=== PATIENT | female | born 1955 | race Caucasian/White ===

== ENCOUNTER 2016-07-08 12:20 | Emergency (ER) | payer MEDICARE, MEDICAID ==
--- NOTE | 2016-07-08 12:35 | Emergency Department Record ---
History of Present Illness - General Chief Complaint: Back Pain/Injury Stated Complaint: BACK PAIN Time Seen by Provider: 07/08/16 12:34 Source: Patient Mode of Arrival: Ambulatory Limitations: No limitations - History of Present Illness Initial Comments: The patient is here due to a 5 day hx of R flank and back pain. The pain is sharp and stabbing and waxes and wanes. The pain seems to be worse at night but is not worse with bending or twisting. She denies any abdominal pain, fever, chills, or dysuria. The patient denies that the pain radiates to the legs and has had no spinal pain or leg pain or weakness. MD Complaint: Back pain Onset/Timin -: Days(s) Similar Symptoms Previously: No Place: Home Radiation: None Severity scale (1-10): 7 Quality: Aching, Sharp Consistency: Constant Improves With: None Worsens With: None Context: Unknown Associated Symptoms: Denies other symptoms Treatments Prior to Arrival: NSAIDS - Related Data Home Medications Medication Instructions Recorded Confirmed Last Taken Aspirin [Aspirin EC] 325 mg PO DAILY 09/20/14 07/08/16 09/26/15 Vitamin B Complex [Stress B] 1 each PO .EVERY OTHER DAY 01/06/15 07/08/16 Previous Rx's Medication Instructions Recorded Cyclobenzaprine HCl [Flexeril] 10 mg PO TID PRN #20 tablet 07/08/16 Allergies Allergy/AdvReac Type Severity Reaction Status Date / Time codeine Allergy Mild VOMITING Unverified 01/24/16 08:58 meperidine HCl [From Demerol] Allergy Mild VOMITING Unverified 01/24/16 08:58 naproxen Allergy VOMITING Verified 07/08/16 12:31 meloxicam AdvReac Mild NAUSEA AND Unverified 01/24/16 08:58 VOMITING Travel Screening - Travel/Exposure Within Last 30 Days Have you traveled within the last 30 days?: No Review of Systems Constitutional: Denies: Chills, Fever Eyes: Denies: Eye discharge ENT: Denies: Congestion Respiratory: Denies: Cough, Dyspnea Past Medical History - SOCIAL HISTORY Smoking Status: Former smoker Alcohol Use: None Drug Use: None - RESPIRATORY Hx Respiratory Disorders: Yes Hx COPD: Yes (emphysema) Hx Sleep Apnea: Yes Hx of CPAP: Yes - CARDIOVASCULAR Hx Cardio Disorders: Yes Hx CHF: Yes Hx Hypertension: Yes - NEURO Hx Neuro Disorders: Yes Hx Headaches: Yes - GI Hx GI Disorders: No - Hx Genitourinary Disorders: No - ENDOCRINE Hx Endocrine Disorders: Yes Hx Diabetes: Yes (pre) - MUSCULOSKELETAL Hx Musculoskeletal Disorders: Yes Hx Arthritis: Yes Hx Musculoskeletal Disease: Yes (spinal stenosis) - PSYCH Hx Psych Problems: No - HEMATOLOGY/ONCOLOGY Hx Hematology/Oncology Disorders: No Family Medical History Any Significant Family History?: Yes Hx Diabetes: Mother, Brother/Sister Physical Exam - General General Appearance: Alert, Oriented x3, Cooperative, No acute distress - Head Head exam: Atraumatic, Normocephalic, Normal inspection - Eye Eye exam: Normal appearance, PERRL - Neck Neck exam: Normal inspection, Full ROM. negative: Tenderness - Respiratory Respiratory exam: Normal lung sounds bilaterally. negative: Respiratory distress - Cardiovascular Cardiovascular Exam: Regular rate, Normal rhythm, Normal heart sounds - GI/Abdominal GI/Abdominal exam: Soft, Normal bowel sounds. negative: Tenderness - Extremities Extremities exam: Normal inspection, Full ROM, Normal capillary refill. negative: Tenderness - Back Back exam: Reports: Normal inspection, Paraspinal tenderness (The pain is very reproducible to palpation over the R flank and upper lumbar paraspinal area.). Denies: Rash noted, Vertebral tenderness Course Vital Signs 07/08/16 12:27 Temperature 97.4 F L Pulse Rate 72 Respiratory 20 Rate Blood Pressure 137/96 Pulse Ox 96 - Reevaluation(s) Reevaluation #1: The patient is resting comfortably. She denies any pain or discomfort at this time. I did explain to her the test results are WNL. She is to F/U with her PCP later this week and return to the ER if worse. 07/08/16 13:58 Medical Decision Making - Data Complexity MDM Data: Labs Ordered and/or Reviewed, X-Ray Ordered and/or Reviewed (CT: Neg) - Lab Data Result diagrams: 07/08/16 12:50 07/08/16 12:50 Disposition Disposition: Discharge Clinical Impression: Acute Flank Pain Disposition: Home, Self-Care Condition: (1) Good Instructions: Low Back Strain (ED) Additional Instructions: Please take your home pain medicines and use Flexeril if needed. Please see your PCP later this week for recheck. Return to the ER if worse. Prescriptions: Cyclobenzaprine HCl [Flexeril] 10 mg PO TID PRN #20 tablet PRN Reason: Pain Forms: Patient Portal Access Time of Disposition: 14:00
[2016-07-08 13:08] LABS: BASO % 0.4 % (0-6); EOS % 0.6 % (0-6); GRAN % 78.9 % (47-80); HEMATOCRIT 45.3 % (35.0-47.0); HEMOGLOBIN 15.3 gm/dl (11.6-16.0); LYMPH % 12.6 % (16-45); MEAN CELL VOLUME 88.8 fl (81-97); MEAN CORPUSCULAR HGB CONC 33.8 g/dl (32-36); MONO % 7.5 % (0-9); PLATELET COUNT 306 K/uL (130-400); RED CELL DISTRIBUTION WIDTH 14.7 % (11.5-14.5)
[2016-07-08 13:11] LABS: URINE APPEARANCE CLEAR; URINE BILIRUBIN SMALL (NEGATIVE); URINE BLOOD NEGATIVE (NEGATIVE); URINE COLOR ORANGE; URINE GLUCOSE (UA) NEGATIVE (NEGATIVE); URINE KETONE NEGATIVE (NEGATIVE); URINE LEUKOCYTE ESTERASE NEGATIVE (NEGATIVE); URINE NITRITE NEGATIVE (NEGATIVE)
[2016-07-08 13:20] LABS: ALBUMIN 4.2 gm/dL (3.5-5.0); ALKALINE PHOSPHATASE 85 U/L (38-126); ALT/SGPT 29 U/L (9-52); ANION GAP 13.3 (7-16); AST/SGOT 30 U/L (14-36); BILIRUBIN,TOTAL 0.68 mg/dL (0.2-1.3); BLOOD UREA NITROGEN 17 mg/dL (7-17); CARBON DIOXIDE 21.7 mmol/L (22-30); CREATININE 0.6 mg/dL (0.52-1.04); EST GLOMERULAR FILTRATION RATE > 60 ml/min; GLUCOSE,RANDOM 106 mg/dL (70-110); TOTAL PROTEIN 7.8 gm/dL (6.3-8.2)
[2016-07-08 13:27] LABS: URINE BACTERIA FEW; URINE MUCUS LIGHT; URINE RBC 0 - 2 (NONE SEEN); URINE WBC 0 - 2 (0-2/hpf)
[2016-07-08] MEDS ORDERED: KETOROLAC 30 MG/ML VIAL IM ONE (13:34)
== END 2016-07-08 14:38 | disposition home or self-care (01) ==
LOC: ER 12:20
DX: M54.5 Low back pain (principal); I50.9 Heart failure, unspecified; I10 Essential (primary) hypertension; Z87.891 Personal history of nicotine dependence
CPT/HCPCS: 99283; 96372; 99284; 85025; 80076; 80048; 81001; 74176; J1885

== ENCOUNTER 2018-10-03 16:11 | Emergency (ER) | payer MEDICARE, MEDICAID ==
[2018-10-03] MEDS ORDERED: 0.9 % SODIUM CHLORIDE 1,000 ML BAG IV ONE (16:47)
[2018-10-03 17:07] LABS: URINE APPEARANCE CLEAR; URINE BILIRUBIN NEGATIVE (NEGATIVE); URINE BLOOD NEGATIVE (NEGATIVE); URINE COLOR YELLOW; URINE GLUCOSE (UA) NEGATIVE (NEGATIVE); URINE KETONE NEGATIVE (NEGATIVE); URINE LEUKOCYTE ESTERASE NEGATIVE (NEGATIVE); URINE NITRITE NEGATIVE (NEGATIVE); URINE PROTEIN NEGATIVE (NEGATIVE); URINE UROBILINOGEN 0.2 E.U./dL (0.20 - 1.00)
[2018-10-03 17:07] LABS: ABSOLUTE NEUTROPHIL COUNT 9.59; BASO % 0.7 % (0-6); EOS % 0.7 % (0-6); GRAN % 77.9 % (47-80); HEMATOCRIT 46.4 % (35.0-47.0); HEMOGLOBIN 15.4 gm/dl (11.6-16.0); LYMPH % 14.2 % (16-45); MEAN CELL VOLUME 86.9 fl (81-97); MEAN CORPUSCULAR HEMOGLOBIN 28.8 pg (27-33); MEAN CORPUSCULAR HGB CONC 33.2 g/dl (32-36); MEAN PLATELET VOLUME 9.8 fl (7.4-10.4); MONO % 6.5 % (0-9); PLATELET COUNT 299 K/uL (130-400); RED BLOOD COUNT 5.34 M/uL (3.80-5.40); RED CELL DISTRIBUTION WIDTH 14.3 % (11.5-14.5); WHITE BLOOD COUNT W/O DIFF 12.3 K/uL (4.2-12.2)
[2018-10-03 17:21] LABS: BLOOD UREA NITROGEN 16 mg/dL (8-23); CREATININE 0.7 mg/dL (0.5-0.9); EST GLOMERULAR FILTRATION RATE > 60 mL/min; TOTAL PROTEIN 7.8 g/dL (6.6-8.7)
[2018-10-03 17:22] LABS: LIPASE 40 U/L (13-60)
[2018-10-03 17:23] LABS: GLUCOSE,RANDOM 124 mg/dL (74-109)
[2018-10-03 17:26] LABS: ALB/GLOB RATIO 1.2 (1.1-1.8); ALBUMIN 4.3 g/dL (4.0-5.0); ALKALINE PHOSPHATASE 105 U/L (35-104); ALT/SGPT 20 U/L (<33); AST/SGOT 21 U/L (10.0-35.0)
--- NOTE | 2018-10-03 18:55 | Emergency Department Record ---
History of Present Illness - General Chief Complaint: Abdominal Pain Stated Complaint: ABD PAIN Time Seen by Provider: 10/03/18 16:26 Source: Patient Mode of Arrival: Ambulatory Limitations: No limitations - History of Present Illness Initial Comments: pt has been having pain in her upper abdomen for 3 weeks. she had some nausea. she had a colonoscopy a year and a half ago MD Complaint: Abdominal pain Onset/Timin -: Week(s) Location: Epigastric Radiation: Bilateral flank Migration to: Bilateral flank Severity: Moderate Severity scale (1-10): 6 Consistency: Intermittent Associated Symptoms: Constipation - Related Data Patient : No Home Medications Medication Instructions Recorded Confirmed Last Taken Aspirin Chewable 81 mg PO DAILY 10/03/18 10/03/18 Unknown Allergies Allergy/AdvReac Type Severity Reaction Status Date / Time codeine Allergy Mild VOMITING Unverified 10/03/18 17:16 meperidine HCl [From Demerol] Allergy Mild VOMITING Unverified 10/03/18 17:16 naproxen Allergy VOMITING Unverified 10/03/18 17:16 meloxicam AdvReac Mild NAUSEA AND Unverified 10/03/18 17:16 VOMITING Travel Screening - Travel/Exposure Within Last 30 Days Have you traveled within the last 30 days?: No - Travel/Exposure Within Last Year Have you traveled outside the [place] in the last year?: No - Additonal Travel Details Have you been exposed to anyone with a communicable illness?: No - Travel Symptoms Symptom Screening: Stomach Pain Review of Systems Reviewed: No additional complaints except as noted below Constitutional: Reports: As per HPI. Denies: Chills, Fever, Malaise, Night sweats, Weakness, Weight change Eyes: Reports: As per HPI. Denies: Eye discharge, Eye pain, Photophobia, Vision change ENT: Reports: As per HPI. Denies: Congestion, Dental pain, Ear pain, Epistaxis, Hearing loss, Throat pain Respiratory: Reports: As per HPI. Denies: Cough, Dyspnea, Hemoptysis, Stridor, Wheezes Cardiovascular: Reports: As per HPI. Denies: Arrhythmia, Chest pain, Dyspnea on exertion, Edema, Murmurs, Orthopnea, Palpitations, Paroxysmal nocturnal dyspnea, Rheumatic Fever, Syncope Endocrine: Reports: As per HPI. Denies: Fatigue, Heat or cold intolerance, Polydipsia, Polyuria Gastrointestinal: Reports: As per HPI. Denies: Abdominal pain, Constipation, Diarrhea, Hematemesis, Hematochezia, Melena, Nausea, Vomiting Genitourinary: Reports: As per HPI. Denies: Abnormal menses, Discharge, Dyspareunia, Dysuria, Frequency, Hematuria, Incontinence, Retention, Urgency Musculoskeletal: Reports: As per HPI. Denies: Arthralgia, Back pain, Gout, Joint swelling, Myalgia, Neck pain Skin: Reports: As per HPI. Denies: Bruising, Change in color, Change in hair/nails, Lesions, Pruritus, Rash Neurological: Reports: As per HPI. Denies: Abnormal gait, Confusion, Headache, Numbness, Paresthesias, Seizure, Tingling, Tremors, Vertigo, Weakness Psychiatric: Reports: As per HPI. Denies: Anxiety, Auditory hallucinations, Depression, Homicidal thoughts, Suicidal thoughts, Visual hallucinations Hematological/Lymphatic: Reports: As per HPI. Denies: Anemia, Blood Clots, Easy bleeding, Easy bruising, Swollen glands Past Medical History - SOCIAL HISTORY Smoking Status: Current every day smoker Alcohol Use: Occasional Drug Use: None - RESPIRATORY Hx Respiratory Disorders: Yes Hx COPD: Yes (emphysema) Hx Sleep Apnea: Yes Hx of CPAP: Yes - CARDIOVASCULAR Hx Cardio Disorders: Yes Hx CHF: Yes (with childbirth) Hx Hypertension: Yes - NEURO Hx Neuro Disorders: Yes Hx Headaches: Yes - GI Hx GI Disorders: No Hx of Polyps: Yes - Hx Genitourinary Disorders: No - ENDOCRINE Hx Endocrine Disorders: Yes Hx Diabetes: Yes (pre) - MUSCULOSKELETAL Hx Musculoskeletal Disorders: Yes Hx Arthritis: Yes Hx Musculoskeletal Disease: Yes (spinal stenosis) - PSYCH Hx Psych Problems: No - HEMATOLOGY/ONCOLOGY Hx Hematology/Oncology Disorders: No Family Medical History Any Significant Family History?: No Hx Diabetes: Mother, Brother/Sister Physical Exam - General General Appearance: Alert, Oriented x3, Cooperative, Mild distress - Head Head exam: Normal inspection - Eye Eye exam: Normal appearance, PERRL, EOMI Pupils: Normal accommodation - ENT ENT exam: Normal exam, Mucous membranes moist, Normal external ear exam, Normal orophraynx Ear exam: Normal external inspection. negative: External canal tenderness Nasal Exam: Normal inspection. negative: Discharge, Sinus tenderness Mouth exam: Normal external inspection, Tongue normal Teeth exam: Normal inspection. negative: Dental caries Throat exam: Normal inspection. negative: Tonsillar erythema, Tonsillar exudate - Neck Neck exam: Normal inspection, Full ROM. negative: Tenderness - Respiratory Respiratory exam: Normal lung sounds bilaterally. negative: Respiratory distress - Cardiovascular Cardiovascular Exam: Regular rate, Normal rhythm, Normal heart sounds - GI/Abdominal GI/Abdominal exam: Soft, Normal bowel sounds. negative: Tenderness - Rectal Rectal exam: Deferred - exam: Deferred - Extremities Extremities exam: Normal inspection, Full ROM, Normal capillary refill. negative: Tenderness - Back Back exam: Reports: Normal inspection, Full ROM. Denies: Muscle spasm, Rash noted, Tenderness - Neurological Neurological exam: Alert, CN II-XII intact, Normal gait, Oriented X3 - Psychiatric Psychiatric exam: Normal affect, Normal mood - Skin Skin exam: Dry, Intact, Normal color, Warm Course Vital Signs 10/03/18 10/03/18 16:23 18:25 Temperature 98.7 F Pulse Rate 97 H Pulse Rate [ 76 Pulse Ox Probe] Respiratory 18 18 Rate Blood Pressure 149/80 Blood Pressure 145/80 [Right Arm] Pulse Ox 95 97 Medical Decision Making - Lab Data Result diagrams: 10/03/18 16:55 10/03/18 16:55 Lab Results 10/03/18 10/03/18 10/03/18 Range/Units 16:55 16:55 17:00 WBC 12.3 H (4.2-12.2) K/uL RBC 5.34 (3.80-5.40) M/uL Hgb 15.4 (11.6-16.0) gm/dl Hct 46.4 (35.0-47.0) % MCV 86.9 (81-97) fl MCH 28.8 (27-33) pg MCHC 33.2 (32-36) g/dl RDW 14.3 (11.5-14.5) % Plt Count 299 (130-400) K/uL MPV 9.8 (7.4-10.4) fl Gran % 77.9 (47-80) % Lymphocytes % 14.2 L (16-45) % Monocytes % 6.5 (0-9) % Eosinophils % 0.7 (0-6) % Basophils % 0.7 (0-6) % Absolute Neutrophils 9.59 Sodium 135 L (136-145) mmol/L Potassium 3.9 (3.4-4.5) mmol/L Chloride 98 (98-107) mmol/L Carbon Dioxide 23.0 (22-29) mmol/L Anion Gap 14.0 (7-16) BUN 16 (8-23) mg/dL Creatinine 0.7 (0.5-0.9) mg/dL Estimated GFR > 60 mL/min Random Glucose 124 H (74-109) mg/dL Calcium 9.4 (8.8-10.2) mg/dL Total Bilirubin 0.50 (0.2-1.0) mg/dL AST 21 (10.0-35.0) U/L ALT 20 (<33) U/L Alkaline Phosphatase 105 H (35-104) U/L Total Protein 7.8 (6.6-8.7) g/dL Albumin 4.3 (4.0-5.0) g/dL Globulin 3.5 (1.4-4.8) gm/dL Albumin/Globulin Ratio 1.2 (1.1-1.8) Lipase 40 (13-60) U/L Urine Color Yellow Urine Appearance Clear Urine pH 5.5 (5.0-8.0) Ur Specific [place] <= 1.005 (1.002-1.030) Urine Protein Negative (NEGATIVE) Urine Glucose (UA) Negative (NEGATIVE) Urine Ketones Negative (NEGATIVE) Urine Blood Negative (NEGATIVE) Urine Nitrite Negative (NEGATIVE) Urine Bilirubin Negative (NEGATIVE) Urine Urobilinogen 0.2 (0.20 - 1.00) E.U./dL Ur Leukocyte Esterase Negative (NEGATIVE) Disposition Disposition: Discharge Clinical Impression: Abdominal pain Qualifiers: Abdominal location: epigastric Qualified Code(s): R10.13 - Epigastric pain Disposition: Home, Self-Care Condition: (1) Good Instructions: Abdominal Pain (ED) Additional Instructions: follow up with family doctor and GI doctor. return sooner if worse Forms: Patient Portal Access Quality - Quality Measures Quality Measures: N/A - Blood Pressure Screening Does Patient Have Any of the Following: No Blood Pressure Classification: Pre-Hypertensive BP Reading Systolic Measurement: 149 Diastolic Measurement: 80 Screening for High Blood Pressure: < Pre-Hypertensive BP, F/U Documented > [G8950] Pre-Hypertensive Follow-up Interventions: Follow-up with rescreen every year.
--- NOTE | 2018-10-06 22:19 | CT SCAN REPORT ---
EXAM: CT SCAN ABDOMEN/PELVIS WO CONTRAST HISTORY: ABDOMINAL PAIN. TECHNIQUE: CT of the abdomen and pelvis is performed without intravenous or oral contrast. COMPARISON: 07/08/2016. FINDINGS: Mild dependent congestive changes at the lung bases. The liver and spleen are unremarkable. No pancreatic abnormality identified. The gallbladder is surgically absent. There is no adrenal lesion seen. There are no renal or ureteral calculi. No hydronephrosis or contour-deforming renal mass. There is no aortic aneurysm. No periaortic mass or adenopathy. There are no dilated bowel loops. There is no pelvic mass, abscess, or adenopathy. There is no free air or free fluid. There has been a prior appendectomy and hysterectomy. No lytic or blastic bone lesion. There are arthritic changes in the lumbar spine with mild anterior subluxation of L4 on L5 and canal stenosis at the L4-5 level. IMPRESSION: 1. NO ACUTE ABDOMINAL OR PELVIC PROCESS IDENTIFIED. 2. PRIOR HYSTERECTOMY, CHOLECYSTECTOMY, AND APPENDECTOMY. 3. ARTHRITIC CHANGES IN THE LUMBAR SPINE WITH MILD ANTERIOR SUBLUXATION OF L4 ON L5 DUE TO ARTHRITIC CHANGE. THERE IS CENTRAL CANAL STENOSIS AT L4-5. JOB NUMBER: [id number] MTDD
== END 2018-10-03 19:07 | disposition home or self-care (01) ==
LOC: ER 16:11
DX: R10.13 Epigastric pain (principal); R11.0 Nausea; I50.9 Heart failure, unspecified; I10 Essential (primary) hypertension; J44.9 Chronic obstructive pulmonary disease, unspecified; F17.210 Nicotine dependence, cigarettes, uncomplicated
CPT/HCPCS: 74176; 80053; 81003; 83690; 85025; 99284; J7030